=== PATIENT | male | born 1955 | race Caucasian/White ===

== ENCOUNTER 2021-08-05 23:23 | Emergency (ER) | payer OTHER ==
[~2021-08-05] VITALS: Ht 180 cm; Wt 127.0 kg
[2021-08-05 23:35] VITALS: BP 158/90
--- NOTE | 2021-08-05 23:57 | ED General ---
General Chief Complaint: Oral/Throat Problems Stated Complaint: THROAT PAIN Nursing Triage Note: Pt presents per POV w/ spouse c/o "esophageal blockage." States feels like he can't swallow, but able to handle own secretions. Attached to NIBP and SpO2 monitors. Source of Information: Patient (PRICE CHURCH STUDENT) History of Present Illness Date Seen by Provider: Aug 05, 2021 Time Seen by Provider: 23:45 Initial Comments Patient is a 66 year old white male with history of HTN, HLP, and "nutcracker esophagaus" who presents to the ED with chief complaint of "throat pain." Reports that this pain started at 7pm tonight after eating some meat and potatoes and lasted about 4 hours. Described the pain to be constant and sharp/stabbing. The pain was substernal and did not radiate. 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 They usually resolve within 15 minutes but this one lasted about 4 hours. States the pain was a 7/10 at its worse. Took nothing for the pain prior to arrival. States he vomited right before coming back into ED exam room. During these bouts is unable to swallow anything including secretions. Is not taking any medications for this pain and is in the process of moving here from [place]. 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 He has had these exact same symptoms in the past, usually lasts like 15 minutes and then as abruptly as it starts it completely resolves. this noght it did not. He denies radiation of the pain or associated sweating or shortness of breath. He has a mild sore throat from the vomiting. Has had previous endoscopy. Not on medications for this. Has tried SL nitro without relief. Usually happens about once every 3 weeks. No blood in his vomit. No recent bloody stools. Takes medications for HTN. Is not a smoker. Remote cardiac workup in the past. No recent illnesses. Moving here from [facility] - no local doctor. Timing/Duration: 4-6 Hours Modifying Factors: worse with Eating Associated Systoms: Chest Pain, Nausea/Vomiting (BILL RINCON MD) Allergies and Home Medications Patient Home Medication List Home Medication List Reviewed: Yes (BILL RINCON MD) Review of Systems Review of Systems Constitutional: no symptoms reported; No chills, No diaphoresis, No fever, No malaise EENTM: No blurred vision, No double vision Respiratory: no symptoms reported; No cough, No short of breath Cardiovascular: see HPI, chest pain, edema (RLE) Gastrointestinal: No abdominal pain, No diarrhea, No nausea; vomiting Genitourinary: no symptoms reported; No decreased output, No discharge Musculoskeletal: no symptoms reported; No back pain, No joint pain Skin: no symptoms reported; No change in color, No change in hair/nails Psychiatric/Neurological: No Symptoms Reported; Denies Anxiety, Denies Depressed Hematologic/Lymphatic: No Symptoms Reported; Denies Easy Bleeding, Denies Easy Bruising Immunological/Allergic: no symptoms reported (PRICE CH[employer] STUDENT) Constitutional: see HPI EENTM: no symptoms reported, throat pain Cardiovascular: chest pain Gastrointestinal: vomiting (BILL RINCON MD) All Other Systems Reviewed Negative Unless Noted: Yes (PRICE CHURCH) Negative Unless Noted: Yes (BILL RINCON MD) Past Wkulxfd-Pdnurl-Mtwqxw Hx Patient Social History Tobacco Use?: No Smoking Status: Never a Smoker Smokeless Tobacco Frequency: Never a User Use of E-Cig and/or Vaping dev: No Substance use?: No Alcohol Use?: No (PRICE CHURCH) Immunizations Up To Date Influenza Vaccine Up-to-Date: Yes; Up-to-Date (PRICE CHURCH) Seasonal Allergies Seasonal Allergies: No (PRICE CHURCH) Past Medical History Surgeries: Yes Gallbladder Respiratory: No Cardiac: Yes High Cholesterol, Hypertension Neurological: No Genitourinary: Yes Benign Prostatic Hyperpl Gastrointestinal: Yes ("Nutcracker Espophagaus") Musculoskeletal: No Endocrine: No HEENT: No Loss of Vision: Denies Hearing Impairment: Denies Cancer: No Psychosocial: No Integumentary: No Blood Disorders: No ([employer] STUDENT) Physical Exam Vital Signs Vital Signs - First Documented 08/05/21 23:35 Temp 35.8 Pulse 80 Resp 20 B/P (MAP) 158/90 (112) Pulse Ox 93 O2 Delivery Room Air (BILL RINCON MD) Vital Signs Capillary Refill : Less Than 3 Seconds ([employer] STUDENT) Height, Weight, BMI Height: '" Weight: lbs. oz. kg; 39.00 BMI Method: General Appearance: No Apparent Distress, WD/WN Eyes: Bilateral Eye Normal Inspection, Bilateral Eye PERRL, Bilateral Eye EOMI HEENT: PERRL/EOMI, Pharynx Normal, Moist Mucous Membranes Neck: Full Range of Motion, Normal Inspection, Non Tender Respiratory: Chest Non Tender, Normal Breath Sounds, No Accessory Muscle Use Cardiovascular: Regular Rate, Rhythm, Normal Peripheral Pulses, Other (Nonpitting edema RLE) Gastrointestinal: Normal Bowel Sounds, Non Tender, Soft Rectal: Deferred Back: Normal Inspection, No Vertebral Tenderness Extremity: Normal Capillary Refill, Non Tender, No Calf Tenderness Neurologic/Psychiatric: Alert, Oriented x3, No Motor/Sensory Deficits, Normal Mood/Affect Skin: Normal Color, Warm/Dry Lymphatic: No Adenopathy (Head and Neck) (LUCAS CHURCHOzmott STUDENT) General Appearance: No Apparent Distress, WD/WN HEENT: Pharynx Normal, Moist Mucous Membranes Neck: Normal Inspection Respiratory: Lungs Clear, Normal Breath Sounds, No Accessory Muscle Use Cardiovascular: Regular Rate, Rhythm, Normal Peripheral Pulses Gastrointestinal: Normal Bowel Sounds, Soft, Tenderness (slight tenderness at the epigastrum) Extremity: Normal Capillary Refill, Non Tender, No Calf Tenderness, Other (slight edema RLE greater then left) Neurologic/Psychiatric: Alert, Oriented x3, No Motor/Sensory Deficits, Normal Mood/Affect Skin: Normal Color, Warm/Dry (BILL RINCON MD) Progress/Results/Core Measures Suspected Sepsis SIRS Temperature: Pulse: 80 Respiratory Rate: 20 Blood Pressure 158 /90 Mean: 112 ([employer] STUDENT) Results/Orders Lab Results Laboratory Tests Test 08/06/21 00:15 Range/Units White Blood Count 10.5 4.3-11.0 10^3/uL Red Blood Count 5.44 4.30-5.52 10^6/uL Hemoglobin 16.6 13.3-17.7 g/dL Hematocrit 49 40-54 % Mean Corpuscular Volume 90 80-99 fL Mean Corpuscular Hemoglobin 31 25-34 pg Mean Corpuscular Hemoglobin Concent 34 32-36 g/dL Red Cell Distribution Width 14.0 10.0-14.5 % Platelet Count 261 130-400 10^3/uL Mean Platelet Volume 8.8 L 9.0-12.2 fL Immature Granulocyte % (Auto) 1 % Neutrophils (%) (Auto) 65 42-75 % Lymphocytes (%) (Auto) 20 12-44 % Monocytes (%) (Auto) 11 0-12 % Eosinophils (%) (Auto) 3 0-10 % Basophils (%) (Auto) 1 0-10 % Neutrophils # (Auto) 6.8 1.8-7.8 10^3/uL Lymphocytes # (Auto) 2.1 1.0-4.0 10^3/uL Monocytes # (Auto) 1.1 H 0.0-1.0 10^3/uL Eosinophils # (Auto) 0.3 0.0-0.3 10^3/uL Basophils # (Auto) 0.1 0.0-0.1 10^3/uL Immature Granulocyte # (Auto) 0.1 0.0-0.1 10^3/uL Sodium Level 140 135-145 MMOL/L Potassium Level 4.0 3.6-5.0 MMOL/L Chloride Level 106 98-107 MMOL/L Carbon Dioxide Level 18 L 21-32 MMOL/L Anion Gap 16 H 5-14 MMOL/L Glucose Level 103 70-105 MG/DL Calcium Level 10.0 8.5-10.1 MG/DL (BILL RINCON MD) My Orders Orders - BILL RINCON MD Ed Iv/Invasive Line Start (08/05/21 23:57) Cbc With Automated Diff (08/05/21 23:57) Basic Metabolic Panel (08/05/21 23:57) Troponin I [place] (08/05/21 23:57) Ekg Tracing (08/05/21 23:57) Chest 1 View, Ap/Pa Only (08/06/21 00:01) (BILL RINCON MD) Vital Signs/I&O 08/05/21 23:35 Temp 35.8 Pulse 80 Resp 20 B/P (MAP) 158/90 (112) Pulse Ox 93 O2 Delivery Room Air (BILL RINCON MD) Vital Signs/I&O Capillary Refill : Less Than 3 Seconds (PRICE CHURCH MED STUDENT) Blood Pressure Mean: 112 ECG Initial ECG Impression Date: Aug 06, 2021 Initial ECG Impression Time: 00:02 Initial ECG Rate: 81 Initial ECG Rhythm: Normal Sinus Initial ECG Intervals: Normal Initial ECG Impression: Normal Initial ECG Comparisson: No Previous ECG Available (BILL RINCON MD) Diagnostic Imaging Diagonstic Imaging: Xray Plain Films/CT/US/NM/MRI: chest Comments Clear lungs; normal mediastinum; no infiltrates or effusions; normal bony structures - interpreted by me Reviewed: Reviewed by Me (BILL RINCON MD) Departure Impression Primary Impression: Esophageal achalasia Disposition: 01 HOME, SELF-CARE Condition: Improved Departure-Patient Inst. Decision time for Depature: 00:43 (BILL RINCON MD) Referrals: NO,LOCAL PHYSICIAN (PCP/Family) Primary Care Physician Patient Instructions: Chest Pain That Is Not Caused by the Heart (DC), LOCAL PHYSICIAN LIST Add. Discharge Instructions: Follow up with your primary care physician. We have provided a list of local physicians for your convenience. Eat small bites of food at a time and thoroughly chew to hopefully help prevent symptoms from occurring. Return to the Emergency Department for any new, concerning or emergent symptoms. PRICE CUHRCH MED STUDENT Aug 05, 2021 23:57 BILL RINCON MD Aug 06, 2021 00:42
[2021-08-06 00:21] LABS: BASOPHILS # (AUTO) 0.1 10^3/uL (0.0-0.1); BASOPHILS % (AUTO) 1 % (0-10); EOSINOPHILS # (AUTO) 0.3 10^3/uL (0.0-0.3); EOSINOPHILS % (AUTO) 3 % (0-10); HEMATOCRIT 49 % (40-54); HEMOGLOBIN 16.6 g/dL (13.3-17.7); LYMPHOCYTES # (AUTO) 2.1 10^3/uL (1.0-4.0); LYMPHOCYTES % (AUTO) 20 % (12-44); MEAN CORPUSCULAR HEMOGLOBIN 31 pg (25-34); MEAN CORPUSCULAR HGB CONC 34 g/dL (32-36); MEAN CORPUSCULAR VOLUME 90 fL (80-99); MEAN PLATELET VOLUME 8.8 fL (9.0-12.2); MONOCYTES # (AUTO) 1.1 10^3/uL (0.0-1.0); MONOCYTES % (AUTO) 11 % (0-12); NEUTROPHILS # (AUTO) 6.8 10^3/uL (1.8-7.8); NEUTROPHILS % (AUTO) 65 % (42-75); PLATELET COUNT 261 10^3/uL (130-400); WHITE BLOOD COUNT 10.5 10^3/uL (4.3-11.0)
[2021-08-06 00:31] LABS: CHLORIDE 106 MMOL/L (98-107); SODIUM 140 MMOL/L (135-145)
[2021-08-06 00:33] LABS: GLUCOSE 103 MG/DL (70-105)
[2021-08-06 00:34] LABS: CARBON DIOXIDE 18 MMOL/L (21-32)
[2021-08-06 00:37] LABS: GFR ESTIMATED 67
[2021-08-06 00:38] LABS: BUN/CREATININE RATIO 13
--- NOTE | 2021-08-06 05:22 | Diagnostic Imaging Report ---
Indication: Chest pain Portable chest 12:20 AM Heart size and pulmonary vascularity are normal. Lungs are clear. There are no effusions or pneumothoraces. IMPRESSION: Negative chest Dictated by: Dictated on workstation # [id number]
== END 2021-08-06 01:05 | disposition home or self-care (01) ==
LOC: ER 23:28
DX: K22.0 Achalasia of cardia (principal); I10 Essential (primary) hypertension
CPT/HCPCS: 36415; 71045; 80048; 84484; 85025; 93005

== ENCOUNTER 2022-02-03 05:43 | Outpatient (CLI) | payer OTHER ==
[~2022-02-03] VITALS: Ht 180.3 cm; Wt 134.6 kg
[2022-02-03] MEDS ORDERED: LOSA50TA63 PO (11:06)
== END 2022-02-03 11:41 | disposition home or self-care (01) ==
LOC: PREOP 05:43
PROVIDERS: ATTEND Surgery
DX: Z01.818 Encounter for other preprocedural examination (principal)

== ENCOUNTER 2022-02-22 06:59 | Day surgery (SDC) | payer OTHER ==
[~2022-02-22] VITALS: Ht 180.3 cm; Wt 134.6 kg
[~2022-02-22 06:59] MED LIST: LOSA50TA63 PO
[2022-02-22] MEDS ORDERED: LACTATED RINGERS 1,000 ML IV STA (07:08)
[2022-02-22] MEDS ORDERED: HURRICAINE EXT TUBE (BENZOCAINE) XX PRN (07:15)
[2022-02-22 07:24] VITALS: BP 121/98
[2022-02-22] MEDS ORDERED: PROPOFOL INJECTION 50 ML IV ONE ×2 (07:32→08:36)
[2022-02-22 09:00] VITALS: BP 93/56
--- NOTE | 2022-02-22 09:00 | Anesthesia-General Post-Op ---
MAC Patient Condition Mental Status/LOC: Same as Preop Cardiovascular: Satisfactory Nausea/Vomiting: Absent Respiratory: Satisfactory Pain: Controlled Complications: Absent Post Op Complications Complications None Follow Up Care/Instructions Patient Instructions None needed. Anesthesiology Discharge Order Discharge Order Patient is doing well, no complaints, stable vital signs, no apparent adverse anesthesia problems. No complications reported per nursing. MARY MCKEON CRNA Feb 22, 2022 09:00
--- NOTE | 2022-02-22 09:04 | Progress Note-Post Operative ---
Post-Operative Progess Note Surgeon (s)/Lumber Stacker Operator (s) Surgeon ERICKA BRAXTON DO Lumber Stacker Operator: ADRIANO OwenII Pre-Operative Diagnosis hx of polyps, dysphagia Post-Operative Diagnosis Duodenitis Hiatal hernia Gastric polyp Gastritis colon polyp diverticula int hemorrhoids Procedure & Operative Findings Date of Procedure 02/22/22 Procedure Performed/Findings EGD with bx EGD with hot bx removal of polyp Colonoscopy with snare PROCEDURE NOTE: After informed consent was obtained, the patient was brought to the endoscopy suite, placed in bed in left lateral decubitus position. He was administered IV sedation by the RECEIVER/LABORER who then monitored vitals the entire time, heart rate, blood pressure and pulse ox and the scope was inserted down the mouth through the esophagus into the stomach. On the way down, noted some mild esophagitis, took a picture, pushed into the stomach, pushed past the antrum into the duodenum. Duodenum looked like it had some moderate inflammation and elected to do a biopsy here. Pulled back and did a biopsy of the antrum, then retroflexed the scope, saw a polyp, mild inflammation and saw a small sliding hiatal hernia. Took a picture of this and then elected to remove the polyp with hot biopsy; able to get all of it in one bite. Pulled the scope into the GE junction, took another picture of the hiatal hernia and then did a biopsy of the GE junction. Pushed the scope back into the stomach, suctioned all the air out of the stomach. At this point pulled the scope up the esophagus and out the mouth. Switched camera, switched gloves, went down below and started the colonoscopy. Pushed all the way into about 140 cm to get all the way to cecum, took a picture of the appendiceal orifice, noted the ileoc ecal valve and then slowly withdrew the scope, insufflating to look circumferentially at the wills starting in the cecum. Just outside of the cecal cap saw a polyp and elected to do a snare polypectomy to remove it. Continued up the ascending colon to the hepatic flexure, then down the transverse colon; where I saw another polyp, which was also removed with the snare. Next to the splenic flexure, into the descending colon, down into the sigmoid and finally into the rectum. Retroflexed in the rectal vault, saw some minimal internal hemorrhoids and took a picture of them. I also saw diverticula on the right side of the colon The patient tolerated the procedure and he recovered in the endoscopy suite. Recommended for repeat colonoscopy in 5 years Anesthesia Type IV sedation by RECEIVER/LABORER Estimated Blood Loss Estimated blood loss (mL): scant Specimens/Packing Specimens Removed duodenal bx antral bx body of stomach bx GE jxn bx Gastric polyp cecal polyp transverse colon polyp ERICKA BRAXTON DO Feb 22, 2022 09:04
[2022-02-22 09:05] VITALS: BP 99/55
--- NOTE | 2022-02-22 09:05 | Endoscopy Discharge Instruct ---
Endo Procedure/Findings Findings 1.: Hiatal Hernia, Gastritis 2.: Polyp 3.: Diverticulosis 4.: Internal Hemorrhoids Discharge Instructions - Activity: You might feel a little sleepy until tomorrow. This is due to the medicine you received to relax you. Until tomorrow, you should: NOT drive a car, operate machinery or power tools. NOT drink any alcoholic beverages. NOT make any important decisions or sign importortant papers. Do not return to work until tomorrow, unless otherwise instructed. Resume previous activities tomorrow. Diet: Start by taking liquids. If you tolerate liquids, advance to solid food. 1.: EGD in 3 years 2.: Colonscopy in 5 years Notify Physician - If you experience excessive bleeding, unusual abdominal pain, fever, or chest pain, contact your doctor immediately. ERICKA BRAXTON DO Feb 22, 2022 09:05
[2022-02-22 09:10] VITALS: BP 104/59
[2022-02-22 09:43] VITALS: BP 104/59
== END 2022-02-22 09:40 | disposition home or self-care (01) ==
LOC: ENDO 06:59
PROVIDERS: ATTEND Surgery
DX: D12.0 Benign neoplasm of cecum (principal); D12.3 Benign neoplasm of transverse colon; K29.50 Unspecified chronic gastritis without bleeding; K31.89 Other diseases of stomach and duodenum; K31.7 Polyp of stomach and duodenum; K21.00 Gastro-esophageal reflux disease with esophagitis, without bleeding; K44.9 Diaphragmatic hernia without obstruction or gangrene; K57.30 Diverticulosis of large intestine without perforation or abscess without bleeding; K64.8 Other hemorrhoids; K29.80 Duodenitis without bleeding; E66.9 Obesity, unspecified; Z68.41 Body mass index [BMI] 40.0-44.9, adult; Z28.311 Partially vaccinated for COVID-19

== ENCOUNTER 2023-04-24 10:04 | Emergency (ER) | payer MEDICARE, OTHER ==
--- NOTE | 2023-04-24 11:45 | ED EENT ---
History of Present Illness General Chief Complaint: Dental Problems/Pain Stated Complaint: NASAL CONGESTION/HEAD PRESSURE Nursing Triage Note: PT HAS AREA ON R SIDE FACE ABOVE LIP EVEN W NOSE, PT HAS POSS DENTAL ABCESS. PT WAS GIVEN KEFLEX YESTERAY AND AREA HAS GOTTEN SL LARGER. PT STATES AREA VERY TENDER RATES DISCOMFORT 07/02. Source: patient Exam Limitations: no limitations History of Present Illness Date Seen by Provider: Apr 24, 2023 Time Seen by Provider: 11:27 Initial Comments This 68-year-old gentleman presents to the emergency room with pain and swelling at the inferior aspect of the right maxillary region. He denies any fever or chills. He is not experiencing any dental pain. He was previously treated with amoxicillin 500 mg twice daily on March 11. He presented to the clinic yesterday and was started on Keflex 500 mg 4 times daily. He has taken 4 doses but the symptoms seem to be worsening. He has not had any vision change. There is no drainage externally or in the mouth. Swelling and erythema are noticed above the region of the right upper canine when examining the gingiva. This area is significantly painful. His primary care provider is Dr. Pena. Allergies and Home Medications Allergies Coded Allergies: No Known Allergies (Unverified Allergy, Unknown, 02/03/22) Patient Home Medication List Home Medication List Reviewed: Yes Clindamycin HCl (Clindamycin HCl) 300 Mg Capsule, 300 MG PO QID Prescribed by: KARO BRODERICK on 04/24/23 1237 Losartan Potassium (Losartan Potassium) 50 Mg Tablet, 50 MG PO DAILY, (Reported) Entered as Reported by: KATELYN LUZ on 02/03/22 1106 Sulfamethoxazole/Trimethoprim (Bactrim Ds Tablet) 1 Each Tablet, 1 EACH PO BID Prescribed by: KARO BRODERICK on 04/24/23 1237 Review of Systems Review of Systems Constitutional: no symptoms reported Eyes: No Symptoms Reported Ears: No Symptoms Reported Nose: no symptoms reported Mouth: see HPI Throat: no symptoms reported Respiratory: no symptoms reported Cardiovascular: no symptoms reported Gastrointestinal: no symptoms reported Musculoskeletal: no symptoms reported Skin: see HPI Neurological: No Symptoms Reported Hematologic/Lymphatic: No Symptoms Reported Immunological/Allergic: no symptoms reported Past Ufhhcph-Ljwqrz-Lallfi Hx Patient Social History Tobacco Use?: No Substance use?: No Alcohol Use?: No Immunizations Up To Date First/Initial COVID19 Vaccinat: 2020 Second COVID19 Vaccination Brady: 2020 Third COVID19 Vaccination Date: 2021 Seasonal Allergies Seasonal Allergies: No Past Medical History Surgeries: Yes Gallbladder Respiratory: No Cardiac: Yes High Cholesterol, Hypertension Neurological: No Genitourinary: Yes Benign Prostatic Hyperpl Gastrointestinal: Yes ("Nutcracker Espophagaus") Musculoskeletal: No Endocrine: No HEENT: No Loss of Vision: Denies Hearing Impairment: Denies Cancer: No Psychosocial: No Integumentary: No Blood Disorders: No Physical Exam Vital Signs Vital Signs - First Documented 04/24/23 10:15 Temp 36.6 Pulse 75 Resp 18 B/P (MAP) 167/102 (123) Pulse Ox 94 Height, Weight, BMI Height: '" Weight: lbs. oz. kg; 41.40 BMI Method: General Appearance: WD/WN, no apparent distress Eyes: bilateral eye normal inspection Ears: bilateral ear auricle normal, bilateral ear canal normal, bilateral ear TM normal Nose: normal inspection Mouth/Throat: other (Fullness, erythema, and tenderness superior to the gingiva and mucosa near the right upper canine. This area of fullness and tenderness can be palpated externally at the inferior aspect of the right maxilla as well.) Neck: normal inspection Cardiovascular: regular rate, rhythm Respiratory: no respiratory distress Neurologic/Psychiatric: mirror painter II-XII nml as tested, no motor/sensory deficits, alert, normal mood/affect, oriented x 3 Skin: warm/dry, other (slght redness of the right cheek) Progress/Results/Core Measures Results/Orders My Orders Vital Signs/I&O Blood Pressure Mean: 123 Progress Progress Note #1: Time: 11:41 Progress Note Report from nursing staff was received and stability was noted. Interview and exam was delayed due to interruptions in form high needs patient in the ER. Patient has been interviewed and examined. He has edema, erythema, and TTP over the right maxilla superior to the right upper canine. He appears aseptic. I offered pain medication which was declined. CT of sinuses was suggested to help clarify the source of the problem. Maxillary sinusitis v dental abscess v superficial abscess can be clarified with imaging. CT is justified due to re currence and worsening after 4 doses of antibiotics. Progress Note #2: Progress Note Patient declined pain medication. CT was obtained. I reviewed CT images and noted no drainable abscess. Periodontal disease was noted as indicated in the radiologist report. Apical dental abscesses could be present. I have recommended more aggressive antibiotic therapy. I am switching him to dual treatment with clindamycin and Bactrim. See discharge instructions for further discussion. He was given a disc of CT images to deliver to his dentist for review. Diagnostic Imaging Diagonstic Imaging: CT Comments NAME: LOS TUCKER REC#: [id number] PT STATUS: REG ER : 1955 PHYSICIAN: KARO LANE MD ADMIT DATE: 04/24/23/ER Signed Date of Exam:04/24/23 CT SINUS COMPLETE WO PROCEDURE: CT Sinus w/o Contrast. TECHNIQUE: Multiple contiguous axial images were obtained through the sinuses without the use of intravenous contrast. Coronal reformations were performed. All CT scans use one or more of the following dose optimizing techniques: Automated exposure control, MA and/or KvP adjustment based on a patient size and exam type, or iterative reconstruction. INDICATION: Right-sided facial pain. Evaluate for sinusitis or dental abscess. COMPARISON: None. FINDINGS: Mucosal thickening is seen in the antrum of the right maxillary sinus. No fluid levels are seen. The remainder of the sinuses are clear. The mastoid air cells are well pneumatized. Periapical lucency is seen associated with the first and second molars of the right maxilla. The bony nasal septum is slightly S shaped. No acute facial fractures. The globes and orbits are symmetric and unremarkable. Included intracranial contents show no acute abnormalities. The included soft tissues of the head are normal in appearance. IMPRESSION: 1. Focal lucencies involving the first and second molars of the right maxilla. This is suggestive of periodontal disease. Mucosal thickening within the antrum of the right maxillary sinus may be reactive and associated with these findings. Recommend dental consultation to further evaluate. Dictated by: Dictated on workstation # [id number] Dict: 04/24/23 1202 Trans: 04/24/23 1225 [id number] Interpreted by: CONCEPCIÓN BOBBY DO Electronically signed by: CONCEPCIÓN BOBBY DO 04/24/23 1225 Departure Impression Primary Impression: Periodontal disease Additional Impression: Right maxillary sinusitis Disposition: 01 HOME, SELF-CARE Condition: Improved Departure-Patient Inst. Decision time for Depature: 12:34 Referrals: WHITLEY PENA MD (PCP/Family) Primary Care Physician Patient Instructions: Sinusitis, Adult ED, Periodontal Disease Add. Discharge Instructions: Complete your antibiotics as prescribed unless otherwise directed by your dentist or doctor. You may discontinue Keflex (cephalexin) after starting your new antibiotic. Follow-up with your dentist as soon as possible. Please bring the CT report and CT disc along with these discharge instructions to your dentist office tomorrow. This will help them determine the best course of action for further treatment. You may take Tylenol (acetaminophen) up to 1000 mg every 6 hours as needed for pain. You may add ibuprofen up to 600 mg every 6 hours as needed for additional pain relief. Continue brushing your teeth twice daily with a soft bristle toothbrush. Return to the emergency room if you have worsening symptoms despite following these instructions. Also return to the ER if you have new symptoms such as fever or chills. All discharge instructions reviewed with patient and/or family. Voiced under standing. Scripts Sulfamethoxazole/Trimethoprim (Bactrim Ds Tablet) 1 Each Tablet 1 EACH PO BID, #[address]: [address] MD 04/24/23 Clindamycin HCl (Clindamycin HCl) 300 Mg Capsule 300 MG PO QID, #40 CAP Prov: KARO LANE MD 04/24/[address] MD Apr 24, 2023 11:45
--- NOTE | 2023-04-24 12:17 | Diagnostic Imaging Report ---
PROCEDURE: CT Sinus w/o Contrast. TECHNIQUE: Multiple contiguous axial images were obtained through the sinuses without the use of intravenous contrast. Coronal reformations were performed. All CT scans use one or more of the following dose optimizing techniques: Automated exposure control, MA and/or KvP adjustment based on a patient size and exam type, or iterative reconstruction. INDICATION: Right-sided facial pain. Evaluate for sinusitis or dental abscess. COMPARISON: None. FINDINGS: Mucosal thickening is seen in the antrum of the right maxillary sinus. No fluid levels are seen. The remainder of the sinuses are clear. The mastoid air cells are well pneumatized. Periapical lucency is seen associated with the first and second molars of the right maxilla. The bony nasal septum is slightly S shaped. No acute facial fractures. The globes and orbits are symmetric and unremarkable. Included intracranial contents show no acute abnormalities. The included soft tissues of the head are normal in appearance. IMPRESSION: 1. Focal lucencies involving the first and second molars of the right maxilla. This is suggestive of periodontal disease. Mucosal thickening within the antrum of the right maxillary sinus may be reactive and associated with these findings. Recommend dental consultation to further evaluate. Dictated by: Dictated on workstation # [id number]
[2023-04-24] MEDS ORDERED: SULF1TAB38 PO (12:37)
[2023-04-24] MEDS ORDERED: CLIN-144 PO (12:37)
[2023-04-24 12:44] VITALS: BP 167/102
== END 2023-04-24 12:44 | disposition home or self-care (01) ==
LOC: EDUNIT# 10:04 → ER 10:06
DX: K05.6 Periodontal disease, unspecified (principal); J32.0 Chronic maxillary sinusitis
CPT/HCPCS: 70486